=== PATIENT | female | born 1955 | race Hispanic/Latino ===

== ENCOUNTER → 2017-05-29 | Outpatient (CLI) | payer MEDICARE ==
[~2017-05-29] MED LIST: IOPAMIDOL-370 75 ML VIAL IV ONE
== END ==
LOC: RAH 09:00
PROVIDERS: ATTEND Family Medicine
DX: R10.9 Unspecified abdominal pain (principal)
CPT/HCPCS: 74160; Q9967

== ENCOUNTER 2018-04-08 09:50 | Observation (INO) | payer MEDICARE ==
[~2018-04-08] VITALS: Ht 149.9 cm; Wt 73.4 kg
[2018-04-08 10:35] LABS: BASOPHILS % (AUTO) 0.3 % (0.0-5.0); EOSINOPHILS % (AUTO) 1.5 % (0.0-8.0); HEMATOCRIT 40.1 % (36-48); LYMPHOCYTES % (AUTO) 21.4 % (21.0-51.0); MEAN CORPUSCULAR HEMOGLOBIN 30.3 pg (27.0-33.0); MEAN CORPUSCULAR HGB CONC 33.2 g/dL (32.0-36.0); MEAN CORPUSCULAR VOLUME 91.3 fL (79-99); MONOCYTES % (AUTO) 5.1 % (3.0-13.0); NEUTROPHILS % (AUTO) 71.7 % (40.0-77.0); NUCLEATED RED BLOOD CELLS 0.1 % (0.0-0.19); PLATELET COUNT (AUTO) 278 K/uL (130-400); RED BLOOD CELL COUNT(AUTO) 4.39 MIL/uL (4.00-5.50); RED CELL DISTRIBUTION WIDTH 13.7 % (11.0-15.5)
[2018-04-08 10:38] LABS: APPEARANCE,URINE Cloudy (CLEAR); BILIRUBIN,URINE Negative (NEGATIVE); COLOR,URINE Yellow (YELLOW); GLUCOSE, URINE (UA) Negative (NEGATIVE); KETONES,URINE Negative (NEGATIVE); LEUKOCYTE ESTERASE ,URINE Small (NEGATIVE); NITRATE,URINE Negative (NEGATIVE); OCCULT BLOOD,URINE Negative (NEGATIVE); PROTEIN,URINE Negative (NEGATIVE); UROBILINOGEN,URINE 0.2 mg/dL (0.2-1.0)
[2018-04-08 10:43] LABS: CREATININE 0.8 mg/dL (0.5-1.5); POTASSIUM 3.9 mmol/L (3.5-5.1)
[2018-04-08 10:48] LABS: ALBUMIN 3.8 g/dL (3.5-5.0); BILIRUBIN,TOTAL 0.5 mg/dL (0.2-1.0); TOTAL PROTEIN, SERUM 8.5 g/dL (6.0-8.3)
[2018-04-08 10:48] LABS: BACTERIA,URINE Few /HPF (None Seen); RBC,URINE 0-1 /HPF (0-1)
[2018-04-08] MEDS ORDERED: ASPIRIN 325 MG TABLET ONE (12:04)
[2018-04-08] MEDS: SODIUM CHLORIDE 0.9% 1000ML 1,000 ML IV SCH (15:39)
[2018-04-08] MEDS ORDERED: ACETAMINOPHEN 325 MG TAB PO PRN (15:45)
[2018-04-08] MEDS ORDERED: MORPHINE SULFATE 2 MG/ML 1ML SYG IV PRN (15:45)
[2018-04-08] MEDS ORDERED: ONDANSETRON HCL 4 MG/2 ML VIAL IV PRN (15:45)
[2018-04-08] MEDS ORDERED: HYDRALAZINE HCL 20 MG/ML VIAL IV PRN (15:45)
[2018-04-08] MEDS: INSULIN HUMULIN R 100 UNIT/ML 3ML SQ SCH ×2 (16:30→21:00)
[2018-04-08 18:15] VITALS: BP 123/63
[2018-04-08] MEDS ORDERED: ACET-2900 PO (18:26)
[2018-04-08] MEDS ORDERED: METF-444 PO (18:26)
[2018-04-08] MEDS: FAMOTIDINE/PF 20 MG/2 ML VIAL IV SCH (20:40)
--- NOTE | 2018-04-08 20:40 | NUR ---
MEDS PT RESTING WELL IN BED. NO CONCERNS VERBALIZED. DUE MEDS ADMINISTERED, TOLERATED WELL. KEPT RESTED AND COMFORTABLE. CALL LIGHT WITHIN REACH. WILL CONTINUE TO MONITOR.
[2018-04-08] MEDS ORDERED: ATORVASTATIN CALCIUM 20 MG TABLET PO SCH (21:00)
[2018-04-08] MEDS ORDERED: ACETAMINOPHEN EXTENDED RELEASE 650 MG TABLET PO PRN (21:45)
[2018-04-09] VITALS: BP 122/65
[2018-04-09] MEDS: SODIUM CHLORIDE 0.9% 1000ML 1,000 ML IV SCH ×2 (01:10→02:48)
--- NOTE | 2018-04-09 02:00 | NUR ---
ROUNDS PT FAIRLY ASLEEP WITH RESPIRATIONS EVEN AND UNLABORED. NO NOTED DISTRESS. KEPT UNDISTURBED FOR NOW. WILL MONITOR PT.
[2018-04-09 04:00] VITALS: BP 142/55
[2018-04-09 04:37] LABS: MEAN CORPUSCULAR HEMOGLOBIN 31.1 pg (27.0-33.0); MEAN CORPUSCULAR VOLUME 91.4 fL (79-99); PLATELET COUNT (AUTO) 267 K/uL (130-400); RED BLOOD CELL COUNT(AUTO) 3.72 MIL/uL (4.00-5.50); RED CELL DISTRIBUTION WIDTH 13.6 % (11.0-15.5); WHITE BLOOD COUNT (AUTO) 8.1 K/uL (4.8-10.8)
[2018-04-09 04:42] LABS: CREATININE 0.8 mg/dL (0.5-1.5); POTASSIUM 3.7 mmol/L (3.5-5.1)
--- NOTE | 2018-04-09 05:36 | NUR ---
ROUNDS PT RESTING WELL. NO NEUROLOGIC DEFICITS NOTED. KEPT COMFORTABLE. FOR MORE CARE.
[2018-04-09] MEDS: INSULIN HUMULIN R 100 UNIT/ML 3ML SQ SCH ×2 (06:17→11:30)
[2018-04-09 08:00] VITALS: BP 132/67
[2018-04-09] MEDS ORDERED: ASPI-555 PO (08:19)
[2018-04-09] MEDS ORDERED: ATOR10 PO (08:19)
[2018-04-09] MEDS ORDERED: ENOXAPARIN SODIUM 40 MG/0.4 ML SYRINGE SQ SCH (09:00)
[2018-04-09] MEDS ORDERED: ASPIRIN 81 MG EC TAB PO SCH (09:00)
[2018-04-09] MEDS ORDERED: ASPIRIN 81MG TAB.CHEW PO SCH (09:00)
[2018-04-09] MEDS: FAMOTIDINE/PF 20 MG/2 ML VIAL IV SCH (09:09)
--- NOTE | 2018-04-09 09:30 | NUR ---
DYSPHAGIA EVAL COMPLETE. -S/S OF ASPIRATION. RECOMMEND REGULAR, THIN LIQUID DIET; PILLS WHOLE WITH LIQUIDS. PATIENT INFORMATION: Pt IS A 62 Y.O. FEMALE REFERRED FOR A BEDSIDE DYSPHAGIA EVALUATION SECONDARY TO POSSIBLE CVA. Pt AAOX3 AND COOPERATIVE. Pt REPORTS MARIBEL SHE CAME IN WITH DIFFICULTY SWALLOWING BUT SYMPTOMS HAS SUBSIDED. Pt CURRENTLY ADMITTED SECONDARY TO RULE OUT CVA. Pt HAS A PAST MEDICAL HISTORY SIGNIFICANT FOR DIABETES MELLITUS, HYSTERECTOMY, AND CHOLECYSTECTOMY. EVALUATION: SWALLOW FUNCTION AND EFFICIENCY WITHIN FUNCTIONAL LIMITS. ORAL MOTOR STRENGTH, COORDINATION, AND ROM WITHIN FUNCTIONAL LIMITS. LARYNGEAL ELEVATION/EXCURSION STRONG WITH TIMELY PHARYNGEAL RESPONSE. NO OVERT SIGNS OR SYMPTOMS OF ASPIRATION PRESENT AT BEDSIDE. VOCAL QUALITY CLEAR WITH NO THROAT CLEAR OR COUGH RESPONSE PRESENT. RECOMMENDATIONS: 1. REGULAR TEXTURE, THIN LIQUID DIET; PILLS WHOLE WITH LIQUIDS. 2. COMPENSATORY STRATEGIES (PROPHYLAXIS): *SEATED AT 90 DEGREE ANGLE G-CODES SWALLOWING: [id number] Addendum: 04/09/18 at 1242 by LIZA COTTON Amended: Links added.
--- NOTE | 2018-04-09 09:45 | NUR ---
COGNITIVE EVAL COMPLETE. COGNITIVE-LINGUISTIC ABILITIES WITHIN FUNCTIONAL LIMITS. PATIENT INFORMATION: Pt IS A 62 Y.O. FEMALE REFERRED FOR A BEDSIDE DYSPHAGIA EVALUATION SECONDARY TO POSSIBLE CVA. Pt AAOX3 AND COOPERATIVE. Pt HAS A PAST MEDICAL HISTORY SIGNIFICANT FOR DIABETES MELLITUS, HYSTERECTOMY, AND CHOLECYSTECTOMY. EVALUATION: Pt AAOX3. Pt REQUESTS WANTS AND NEEDS INDEPENDENTLY. Pt INTELLIGIBLE AT 100% ACCURACY TO THE UNFAMILIAR LISTENER. Pt COMMUNICATING AT CONVERSATIONAL LEVEL WITH NO DEFICITS IDENTIFIED AT THIS TIME. Pt COMPLETED COGNITIVE-LINGUISTIC EVALUATION TARGETING: ORIENTATION, ATTENTION/CONCENTRATION, MEMORY (IMMEDIATE, SHORT-TERM AND LONG-TERM), PROBLEM SOLVING, LOGIC/REASONING/INFERENCE, THOUGHT ORGANIZATION, FUNCTIONAL MATH AND TELLING TIME. Pt ABLE TO COMPLETE TASKS WITH CORRECT AND TIMELY ANSWERS TO ALL SECTIONS. G-CODES SPOKEN LANGUAGE EXPRESSION: [id number] Addendum: 04/09/18 at 1246 by LIZA COTTON Amended: Links added.
[2018-04-09 12:00] VITALS: BP 135/63
--- NOTE | 2018-04-09 12:06 | NUR ---
DCP CM met with pt discussed dc plans. Pt is independent prior to admission, lives at home with spouse, daughter lives close by. Denies any equipments/services. Pt feels safe to go back home, still drives, spouse able to assist with transportation and needs as necessary. DC plan to home once stable. CM to cont to follow up. Addendum: 04/09/18 at 1207 by DELL ORTIZ LVN CM Amended: Links added.
--- NOTE | 2018-04-09 17:00 | NUR ---
DISCHARGE PATIENT GIVEN DISCHARGE INSTRUCTIONS VIA TEACH BACK. 20G PIV TO RFA DISCONTINUED, TIP INTACT. RX GIVEN FOR LIPITOR AND ASA. PATIENT TO FOLLOW UP WITH PCP IN 3 TO 5 DAYS. PATIENT INSTRUCTED TO RETURN TO ER IF SYMPTOMS REOCCUR OR WORSEN. PATIENT STABLE AT THIS TIME.
== END 2018-04-09 17:00 | disposition home or self-care (01) ==
LOC: EDH 09:50 → EDHIP 13:08 → 3AH 17:52
PROVIDERS: ADMIT Hospitalist; ATTEND Hospitalist
DX: G45.9 Transient cerebral ischemic attack, unspecified (principal); R13.10 Dysphagia, unspecified; E11.9 Type 2 diabetes mellitus without complications; I10 Essential (primary) hypertension; Z82.3 Family history of stroke; Z82.49 Family history of ischemic heart disease and other diseases of the circulatory system; Z83.3 Family history of diabetes mellitus; Z90.710 Acquired absence of both cervix and uterus
CPT/HCPCS: 36415 ×2; 70450; 70551; 80048; 80053; 81001; 82948 ×4; 84484; 85025; 85027; 92522; 92610; 93005; 93306; 93880; 96361; 96372; 96374; 96376; 97116; 97161; 99284; G0378 ×28; G8978; G8979; G8980; G8981; G8982; G8983; J1650; J3490 ×2; J7030

== ENCOUNTER 2020-03-04 13:58 | Inpatient (IN) | payer MEDICARE ==
[~2020-03-04] VITALS: Ht 149.9 cm; Wt 71.9 kg
[~2020-03-04 13:58] MED LIST changes: +ACET-3194 PO; +ASPI-556 PO; +ATOR10 PO; -IOPAMIDOL-370 75 ML VIAL IV ONE; +METF-444 PO
[2020-03-04 15:02] LABS: INR 0.99 (0.85-1.15); PROTHROMBIN TIME 10.6 SEC (9.6-11.6)
[2020-03-04 15:03] LABS: PARTIAL THROMBOPLASTIN TIME 29.2 SEC (26.3-35.5)
[2020-03-04 15:05] LABS: CARBON DIOXIDE 30 mmol/L (21-32); CHLORIDE 96 mmol/L (101-111); CREATININE 0.8 mg/dL (0.5-1.5); GLOMERULAR FILTR. RATE CALC 77 mL/min (>60); GLUCOSE,RANDOM 135 mg/dL (70-105); SODIUM SERUM 136 mmol/L (136-145); UREA NITROGEN, BLOOD 12 mg/dL (7-18)
[2020-03-04] MEDS ORDERED: ALBUTEROL INHALER 90MCG/INH IH ONE (15:08)
[2020-03-04] MEDS ORDERED: METHYLPREDNISOLONE SOD SUCC 40MG/ML 1ML ONE (15:09)
[2020-03-04] MEDS ORDERED: AZITHROMYCIN 500MG+NS 250ML 250 ML IV ONE (15:09)
[2020-03-04] MEDS ORDERED: ENOXAPARIN SODIUM 60 MG/0.6 ML SQ ONE (15:09)
[2020-03-04] MEDS ORDERED: FAMOTIDINE/PF 20 MG/2 ML VIAL IV ONE (15:10)
[2020-03-04 15:16] LABS: ALANINE AMINOTRANSFERASE 37 U/L (12-78); ASPARTATE AMINOTRANSFERASE 39 U/L (10-37); BILIRUBIN,TOTAL 0.3 mg/dL (0.2-1.0); CREATINE KINASE, TOTAL 26 U/L (21-232); LACTATE DEHYDROGENASE 287 U/L (81-234); MYOGLOBIN 26 ng/mL (10-92); TOTAL PROTEIN, SERUM 8.3 g/dL (6.0-8.3); TROPONIN I < 0.04 ng/mL (0.00-0.06)
[2020-03-04 15:48] LABS: BASOPHILS % (AUTO) 0.2 % (0.0-5.0); EOSINOPHILS % (AUTO) 0.3 % (0.0-8.0); LYMPHOCYTES % (AUTO) 12.9 % (21.0-51.0); MEAN CORPUSCULAR HEMOGLOBIN 30.7 pg (27.0-33.0); MEAN CORPUSCULAR HGB CONC 33.6 g/dL (32.0-36.0); MEAN CORPUSCULAR VOLUME 91.2 fL (79-99); MONOCYTES % (AUTO) 10.3 % (3.0-13.0); NEUTROPHILS % (AUTO) 75.2 % (40.0-77.0); PLATELET COUNT (AUTO) 376 K/uL (130-400); RED BLOOD CELL COUNT(AUTO) 3.62 MIL/uL (4.00-5.50); RED CELL DISTRIBUTION WIDTH 13.6 % (11.0-15.5); WHITE BLOOD COUNT (AUTO) 10.9 K/uL (4.8-10.8)
[2020-03-04] MEDS ORDERED: PHARMACY COMMUNICATION MISC SCH (16:30)
[2020-03-04 16:55] LABS: ERYTHROCYTE SEDIMENTATION RATE 133 MM/HR (0-30)
[2020-03-04 18:19] LABS: HEMOGLOBIN A1C 7.4 % (4.0-6.0)
[2020-03-04] MEDS ORDERED: OMEP40CA13 PO (20:16)
[2020-03-04 23:32] LABS: APPEARANCE,URINE Clear (CLEAR); BILIRUBIN,URINE Negative (NEGATIVE); COLOR,URINE Yellow (YELLOW); GLUCOSE, URINE (UA) 500 mg/dL (NEGATIVE); KETONES,URINE 40 mg/dL (NEGATIVE); LEUKOCYTE ESTERASE ,URINE Negative (NEGATIVE); NITRATE,URINE Negative (NEGATIVE); OCCULT BLOOD,URINE Negative (NEGATIVE); PROTEIN,URINE Trace mg/dL (NEGATIVE); UROBILINOGEN,URINE 0.2 mg/dL (0.2-1.0)
[2020-03-04 23:45] LABS: BACTERIA,URINE None Seen /HPF (None Seen); MUCUS,URINE Rare LPF (None Seen); RBC,URINE None Seen /HPF (0-1); SQUAMOUS EPITHELIAL CELL,UR Few /HPF (0-2); WBC,URINE None Seen /HPF (0-1); YEAST,URINE BUDDING None Seen /HPF (None Seen)
[2020-03-05 04:20] LABS: BASOPHILS % (AUTO) 0.1 % (0.0-5.0); HEMATOCRIT 30.3 % (36-48); LYMPHOCYTES % (AUTO) 15.7 % (21.0-51.0); MEAN CORPUSCULAR HGB CONC 33.3 g/dL (32.0-36.0); MEAN CORPUSCULAR VOLUME 89.9 fL (79-99); MONOCYTES % (AUTO) 10.3 % (3.0-13.0); NEUTROPHILS % (AUTO) 72.4 % (40.0-77.0); PLATELET COUNT (AUTO) 382 K/uL (130-400); RED BLOOD CELL COUNT(AUTO) 3.37 MIL/uL (4.00-5.50); RED CELL DISTRIBUTION WIDTH 13.4 % (11.0-15.5); WHITE BLOOD COUNT (AUTO) 8.1 K/uL (4.8-10.8)
[2020-03-05 04:54] LABS: ALBUMIN 2.5 g/dL (3.5-5.0); BILIRUBIN,TOTAL 0.2 mg/dL (0.2-1.0); CREATININE 0.7 mg/dL (0.5-1.5); POTASSIUM 4.3 mmol/L (3.5-5.1); TOTAL PROTEIN, SERUM 7.4 g/dL (6.0-8.3)
[2020-03-05 06:14] LABS: CRP QUANTITATIVE 208.7 mg/L (0.00-9.0)
[2020-03-05 06:24] LABS: ERYTHROCYTE SEDIMENTATION RATE 131 MM/HR (0-30)
[2020-03-05] MEDS: INSULIN HUMULIN R 100 UNIT/ML 3ML SQ SCH ×4 (07:30→21:00)
[2020-03-05] MEDS ORDERED: DEXAMETHASONE SOD PHOSPHATE 10MG/ML 1ML VIAL ONE (07:40)
[2020-03-05] MEDS ORDERED: INSULIN HUMULIN R 100 UNIT/ML 3ML ONE ×4 (07:41→21:01)
[2020-03-05] MEDS ORDERED: ENOXAPARIN SODIUM 40 MG/0.4 ML SYRINGE SQ ONE (07:41)
[2020-03-05] MEDS ORDERED: PHARMACY COMMUNICATION MISC SCH (11:00)
[2020-03-05] MEDS ORDERED: ERGOCALCIFEROL (VITAMIN D2) 50,000 UNIT CAPSULE PO SCH (11:15)
[2020-03-05] MEDS ORDERED: ERGOCALCIFEROL (VITAMIN D2) 50,000 UNIT CAPSULE ONE (11:17)
[2020-03-05] MEDS: ENOXAPARIN SODIUM 0.5 MG/KG EACH SQ SCH (21:00)
[2020-03-06 04:35] LABS: BASOPHILS % (AUTO) 0.2 % (0.0-5.0); HEMATOCRIT 30.9 % (36-48); LYMPHOCYTES % (AUTO) 16.1 % (21.0-51.0); MEAN CORPUSCULAR HEMOGLOBIN 30.3 pg (27.0-33.0); MEAN CORPUSCULAR HGB CONC 33.3 g/dL (32.0-36.0); MEAN CORPUSCULAR VOLUME 90.9 fL (79-99); NEUTROPHILS % (AUTO) 72.5 % (40.0-77.0); PLATELET COUNT (AUTO) 416 K/uL (130-400); RED CELL DISTRIBUTION WIDTH 13.3 % (11.0-15.5); WHITE BLOOD COUNT (AUTO) 10.7 K/uL (4.8-10.8)
[2020-03-06 04:51] LABS: ALANINE AMINOTRANSFERASE 28 U/L (12-78); ALBUMIN 2.4 g/dL (3.5-5.0); ASPARTATE AMINOTRANSFERASE 42 U/L (10-37); BILIRUBIN,TOTAL 0.1 mg/dL (0.2-1.0); CARBON DIOXIDE 27 mmol/L (21-32); CHLORIDE 108 mmol/L (101-111); CREATININE 0.6 mg/dL (0.5-1.5); GLOMERULAR FILTR. RATE CALC 107 mL/min (>60); GLUCOSE,RANDOM 74 mg/dL (70-105); POTASSIUM 4.1 mmol/L (3.5-5.1); SODIUM SERUM 143 mmol/L (136-145); UREA NITROGEN, BLOOD 14 mg/dL (7-18)
[2020-03-06] MEDS: INSULIN HUMULIN R 100 UNIT/ML 3ML SQ SCH ×4 (07:30→21:00)
[2020-03-06] MEDS: ENOXAPARIN SODIUM 40 MG/0.4 ML SYRINGE SQ SCH (09:00)
[2020-03-06] MEDS: ENOXAPARIN SODIUM 0.5 MG/KG EACH SQ SCH ×2 (09:00→21:00)
[2020-03-06] MEDS: DEXAMETHASONE SOD PHOSPHATE 4 MG/ML 1ML VIAL IVP SCH (09:00)
[2020-03-06] MEDS ORDERED: DEXAMETHASONE SOD PHOSPHATE 10MG/ML 1ML VIAL ONE (09:12)
[2020-03-06] MEDS ORDERED: ASCORBIC ACID 500 MG TAB ONE (09:12)
[2020-03-06] MEDS ORDERED: ACETYLCYSTEINE 600 MG CAPSULE ONE (09:12)
[2020-03-06] MEDS ORDERED: ENOXAPARIN SODIUM 40 MG/0.4 ML SYRINGE SQ ONE (09:13)
[2020-03-06] MEDS ORDERED: ZINC SULFATE 220 CAPSULE ONE (09:13)
[2020-03-06] MEDS ORDERED: DOXYCYCLINE 100MG+NS 250ML 250 ML IV ONE (10:04)
[2020-03-06] MEDS ORDERED: INSULIN HUMULIN R 100 UNIT/ML 3ML ONE (17:20)
[2020-03-06] MEDS ORDERED: ACETAMINOPHEN EXTRA STRENGTH 500 MG TABLET ONE (17:49)
[2020-03-07 05:15] VITALS: BP 145/74
[2020-03-07 06:30] LABS: BASOPHILS % (AUTO) 0.3 % (0.0-5.0); LYMPHOCYTES % (AUTO) 21.9 % (21.0-51.0); MEAN CORPUSCULAR HGB CONC 32.7 g/dL (32.0-36.0); MEAN CORPUSCULAR VOLUME 91.7 fL (79-99); MONOCYTES % (AUTO) 9.5 % (3.0-13.0); NEUTROPHILS % (AUTO) 65.6 % (40.0-77.0); PLATELET COUNT (AUTO) 494 K/uL (130-400); RED CELL DISTRIBUTION WIDTH 13.2 % (11.0-15.5); WHITE BLOOD COUNT (AUTO) 10.8 K/uL (4.8-10.8)
[2020-03-07 07:10] LABS: ALBUMIN 2.6 g/dL (3.5-5.0); BILIRUBIN,TOTAL 0.3 mg/dL (0.2-1.0); CREATININE 0.7 mg/dL (0.5-1.5); POTASSIUM 3.8 mmol/L (3.5-5.1); TOTAL PROTEIN, SERUM 7.7 g/dL (6.0-8.3)
[2020-03-07] MEDS: INSULIN HUMULIN R 100 UNIT/ML 3ML SQ SCH ×4 (07:30→22:51)
[2020-03-07 08:17] VITALS: BP 140/73
[2020-03-07] MEDS: ENOXAPARIN SODIUM 40 MG/0.4 ML SYRINGE SQ SCH ×3 (09:00→22:49)
[2020-03-07] MEDS: DEXAMETHASONE SOD PHOSPHATE 4 MG/ML 1ML VIAL IVP SCH ×2 (09:00→10:21)
[2020-03-07] MEDS: ASCORBIC ACID 500 MG TAB PO SCH ×2 (09:00→10:21)
[2020-03-07] MEDS: ZINC SULFATE 220 CAPSULE PO SCH ×2 (09:00→10:21)
[2020-03-07 09:56] LABS: LACTATE DEHYDROGENASE 255 U/L (81-234)
[2020-03-07] MEDS ORDERED: MAG HYDROX/AL HYDROX/SIMETH ES 30 ML SUSP UDCUP PO PRN (11:30)
[2020-03-07] MEDS: PANTOPRAZOLE SODIUM 40 MG TABLET.DR PO SCH (11:50)
[2020-03-07 12:09] VITALS: BP 127/64
[2020-03-07] MEDS ORDERED: PHARMACY COMMUNICATION MISC SCH ×2 (12:15→12:45)
[2020-03-07] MEDS ORDERED: COMPOUND IV REFRIGERATED 1 EACH IVSOLN MISC PRN (14:00)
[2020-03-07] MEDS ORDERED: REMDESIVIR (EUA) 520 200 MG in SODIUM CHLORIDE 0.9% 250 ML IV ONE (14:00)
[2020-03-07 16:04] VITALS: BP 110/67
[2020-03-07] MEDS: GUAIFENESIN-DM 200/20 MG 10 ML PO PRN (18:52)
[2020-03-07 19:58] VITALS: BP 120/59
[2020-03-07] MEDS ORDERED: CARVEDILOL 25 MG TABLET PO ONE ×2 (21:35→22:36)
[2020-03-07] MEDS ORDERED: FAMOTIDINE/PF 20 MG/2 ML VIAL IV ONE ×2 (21:37→22:37)
[2020-03-07 23:59] VITALS: BP 137/77
[2020-03-08] MEDS: GUAIFENESIN-DM 200/20 MG 10 ML PO PRN ×4 (01:08→20:08)
[2020-03-08 03:23] VITALS: BP 142/70
[2020-03-08 05:47] LABS: BASOPHILS % (AUTO) 0.3 % (0.0-5.0); EOSINOPHILS % (AUTO) 0.1 % (0.0-8.0); HEMATOCRIT 31.4 % (36-48); LYMPHOCYTES % (AUTO) 21.8 % (21.0-51.0); MEAN CORPUSCULAR HEMOGLOBIN 29.8 pg (27.0-33.0); MEAN CORPUSCULAR HGB CONC 32.8 g/dL (32.0-36.0); MEAN CORPUSCULAR VOLUME 90.8 fL (79-99); MONOCYTES % (AUTO) 9.9 % (3.0-13.0); NEUTROPHILS % (AUTO) 63.9 % (40.0-77.0); PLATELET COUNT (AUTO) 507 K/uL (130-400); RED BLOOD CELL COUNT(AUTO) 3.46 MIL/uL (4.00-5.50); RED CELL DISTRIBUTION WIDTH 13.2 % (11.0-15.5); WHITE BLOOD COUNT (AUTO) 9.5 K/uL (4.8-10.8)
[2020-03-08] MEDS: PHARMACY COMMUNICATION MISC SCH (06:00)
[2020-03-08 06:11] LABS: ALBUMIN 2.5 g/dL (3.5-5.0); BILIRUBIN,TOTAL 0.2 mg/dL (0.2-1.0); CREATININE 0.7 mg/dL (0.5-1.5); CRP QUANTITATIVE 61.9 mg/L (0.00-9.0); POTASSIUM 3.9 mmol/L (3.5-5.1); TOTAL PROTEIN, SERUM 7.4 g/dL (6.0-8.3)
[2020-03-08] MEDS: INSULIN HUMULIN R 100 UNIT/ML 3ML SQ SCH ×4 (07:30→20:09)
[2020-03-08 08:00] VITALS: BP 126/56
[2020-03-08] MEDS: ASCORBIC ACID 500 MG TAB PO SCH (09:45)
[2020-03-08] MEDS: ENOXAPARIN SODIUM 40 MG/0.4 ML SYRINGE SQ SCH ×2 (09:45→20:08)
[2020-03-08] MEDS: DEXAMETHASONE SOD PHOSPHATE 4 MG/ML 1ML VIAL IVP SCH (09:45)
[2020-03-08] MEDS: PANTOPRAZOLE SODIUM 40 MG TABLET.DR PO SCH (09:45)
[2020-03-08] MEDS: ZINC SULFATE 220 CAPSULE PO SCH (09:46)
[2020-03-08 12:00] VITALS: BP 110/64
[2020-03-08] MEDS: REMDESIVIR (EUA) 520 100 MG in SODIUM CHLORIDE 0.9% 250 ML IV SCH (13:05)
[2020-03-08 16:00] VITALS: BP 116/79
[2020-03-08 20:00] VITALS: BP 101/58
[2020-03-09] VITALS (7 sets, daily range): BP systolic 107–125; BP diastolic 56–76
[2020-03-09 04:36] LABS: BASOPHILS % (AUTO) 0.2 % (0.0-5.0); EOSINOPHILS % (AUTO) 0.2 % (0.0-8.0); HEMATOCRIT 29.9 % (36-48); LYMPHOCYTES % (AUTO) 20.4 % (21.0-51.0); MEAN CORPUSCULAR HGB CONC 33.1 g/dL (32.0-36.0); MEAN CORPUSCULAR VOLUME 90.6 fL (79-99); MONOCYTES % (AUTO) 9.6 % (3.0-13.0); NEUTROPHILS % (AUTO) 65.9 % (40.0-77.0); PLATELET COUNT (AUTO) 493 K/uL (130-400); RED CELL DISTRIBUTION WIDTH 13.2 % (11.0-15.5); WHITE BLOOD COUNT (AUTO) 10.6 K/uL (4.8-10.8)
[2020-03-09 05:18] LABS: ALANINE AMINOTRANSFERASE 37 U/L (12-78); ALBUMIN 2.6 g/dL (3.5-5.0); ASPARTATE AMINOTRANSFERASE 23 U/L (10-37); BILIRUBIN,DIRECT 0.1 mg/dL (0.0-0.3); BILIRUBIN,TOTAL 0.2 mg/dL (0.2-1.0); CARBON DIOXIDE 30 mmol/L (21-32); CHLORIDE 104 mmol/L (101-111); CREATININE 0.8 mg/dL (0.5-1.5); GLOMERULAR FILTR. RATE CALC 77 mL/min (>60); GLUCOSE,RANDOM 108 mg/dL (70-105); POTASSIUM 4.2 mmol/L (3.5-5.1); SODIUM SERUM 141 mmol/L (136-145); TOTAL PROTEIN, SERUM 6.4 g/dL (6.0-8.3); UREA NITROGEN, BLOOD 20 mg/dL (7-18)
[2020-03-09] MEDS: INSULIN HUMULIN R 100 UNIT/ML 3ML SQ SCH ×4 (05:20→23:06)
[2020-03-09] MEDS: PHARMACY COMMUNICATION MISC SCH (06:00)
[2020-03-09] MEDS: GUAIFENESIN-DM 200/20 MG 10 ML PO PRN ×2 (09:10→18:15)
[2020-03-09] MEDS: PANTOPRAZOLE SODIUM 40 MG TABLET.DR PO SCH (09:10)
[2020-03-09] MEDS: ENOXAPARIN SODIUM 40 MG/0.4 ML SYRINGE SQ SCH ×2 (09:10→23:03)
[2020-03-09] MEDS: ZINC SULFATE 220 CAPSULE PO SCH (09:10)
[2020-03-09] MEDS: ASCORBIC ACID 500 MG TAB PO SCH (09:10)
[2020-03-09] MEDS: DEXAMETHASONE SOD PHOSPHATE 4 MG/ML 1ML VIAL IVP SCH (09:10)
[2020-03-09] MEDS: REMDESIVIR (EUA) 520 100 MG in SODIUM CHLORIDE 0.9% 250 ML IV SCH (13:10)
[2020-03-09] MEDS: ACETAMINOPHEN 325 MG TAB PO PRN (14:53)
[2020-03-10 03:47] VITALS: BP 143/79
[2020-03-10 05:51] LABS: BASOPHILS % (AUTO) 0.2 % (0.0-5.0); EOSINOPHILS % (AUTO) 0.5 % (0.0-8.0); HEMATOCRIT 29.5 % (36-48); LYMPHOCYTES % (AUTO) 22.5 % (21.0-51.0); MEAN CORPUSCULAR HEMOGLOBIN 29.4 pg (27.0-33.0); MEAN CORPUSCULAR HGB CONC 32.5 g/dL (32.0-36.0); MEAN CORPUSCULAR VOLUME 90.5 fL (79-99); MONOCYTES % (AUTO) 10.7 % (3.0-13.0); NEUTROPHILS % (AUTO) 61.7 % (40.0-77.0); PLATELET COUNT (AUTO) 522 K/uL (130-400); RED BLOOD CELL COUNT(AUTO) 3.26 MIL/uL (4.00-5.50); RED CELL DISTRIBUTION WIDTH 13.2 % (11.0-15.5); WHITE BLOOD COUNT (AUTO) 11.7 K/uL (4.8-10.8)
[2020-03-10] MEDS: PHARMACY COMMUNICATION MISC SCH (06:00)
[2020-03-10 06:20] LABS: CREATININE 0.7 mg/dL (0.5-1.5); CRP QUANTITATIVE 27.5 mg/L (0.00-9.0); POTASSIUM 3.4 mmol/L (3.5-5.1)
[2020-03-10] MEDS: INSULIN HUMULIN R 100 UNIT/ML 3ML SQ SCH ×4 (07:30→21:04)
[2020-03-10 08:00] VITALS: BP 121/56
[2020-03-10] MEDS ORDERED: POTASSIUM CHLORIDE 20 MEQ ERTAB PO SCH (08:45)
[2020-03-10] MEDS: PANTOPRAZOLE SODIUM 40 MG TABLET.DR PO SCH (09:10)
[2020-03-10] MEDS: ZINC SULFATE 220 CAPSULE PO SCH (09:10)
[2020-03-10] MEDS: DEXAMETHASONE SOD PHOSPHATE 4 MG/ML 1ML VIAL IVP SCH (09:10)
[2020-03-10] MEDS: ASCORBIC ACID 500 MG TAB PO SCH (09:12)
[2020-03-10] MEDS: ENOXAPARIN SODIUM 40 MG/0.4 ML SYRINGE SQ SCH ×2 (09:12→20:49)
[2020-03-10 12:00] VITALS: BP 105/63
[2020-03-10] MEDS: REMDESIVIR (EUA) 520 100 MG in SODIUM CHLORIDE 0.9% 250 ML IV SCH (13:20)
[2020-03-10 16:00] VITALS: BP 122/62
[2020-03-10 17:56] LABS: HEMATOCRIT 33.2 % (36-48)
[2020-03-10] MEDS ORDERED: LACTULOSE 20 GM/30 ML UDCUP PO SCH (19:00)
[2020-03-10] MEDS ORDERED: POLYETHYLENE GLYCOL 3350 17 GM POWD.PACK PO SCH (19:00)
[2020-03-10 21:38] VITALS: BP 107/56
[2020-03-11 00:06] VITALS: BP 115/58
[2020-03-11 03:45] VITALS: BP 110/62
[2020-03-11 05:25] LABS: BASOPHILS % (AUTO) 0.2 % (0.0-5.0); EOSINOPHILS % (AUTO) 0.4 % (0.0-8.0); HEMATOCRIT 30.1 % (36-48); MEAN CORPUSCULAR HGB CONC 32.2 g/dL (32.0-36.0); MEAN CORPUSCULAR VOLUME 93.2 fL (79-99); MONOCYTES % (AUTO) 11.2 % (3.0-13.0); NEUTROPHILS % (AUTO) 61.2 % (40.0-77.0); PLATELET COUNT (AUTO) 509 K/uL (130-400); RED BLOOD CELL COUNT(AUTO) 3.23 MIL/uL (4.00-5.50); RED CELL DISTRIBUTION WIDTH 13.4 % (11.0-15.5); WHITE BLOOD COUNT (AUTO) 10.8 K/uL (4.8-10.8)
[2020-03-11 05:38] LABS: CREATININE 0.8 mg/dL (0.5-1.5); CRP QUANTITATIVE 28.2 mg/L (0.00-9.0)
[2020-03-11] MEDS: INSULIN HUMULIN R 100 UNIT/ML 3ML SQ SCH ×4 (06:22→21:10)
[2020-03-11] MEDS: PANTOPRAZOLE SODIUM 40 MG TABLET.DR PO SCH (06:35)
[2020-03-11] MEDS: ZINC SULFATE 220 CAPSULE PO SCH (08:30)
[2020-03-11] MEDS: ASCORBIC ACID 500 MG TAB PO SCH (08:30)
[2020-03-11] MEDS: DEXAMETHASONE SOD PHOSPHATE 4 MG/ML 1ML VIAL IVP SCH (08:30)
[2020-03-11] MEDS: ENOXAPARIN SODIUM 40 MG/0.4 ML SYRINGE SQ SCH ×2 (08:30→21:08)
[2020-03-11 08:34] VITALS: BP 121/63
[2020-03-11 08:39] LABS: ALBUMIN 2.4 g/dL (3.5-5.0); BILIRUBIN,DIRECT 0.1 mg/dL (0.0-0.3); BILIRUBIN,TOTAL 0.2 mg/dL (0.2-1.0); TOTAL PROTEIN, SERUM 6.4 g/dL (6.0-8.3)
[2020-03-11 11:51] VITALS: BP 138/82
[2020-03-11] MEDS: REMDESIVIR (EUA) 520 100 MG in SODIUM CHLORIDE 0.9% 250 ML IV SCH (14:49)
[2020-03-11] MEDS: ACETAMINOPHEN 325 MG TAB PO PRN (14:55)
[2020-03-11 16:16] VITALS: BP 104/52
[2020-03-11 19:30] VITALS: BP 125/68
[2020-03-12] VITALS: BP 122/59
[2020-03-12 03:00] VITALS: BP 117/61
[2020-03-12 05:32] LABS: BASOPHILS % (AUTO) 0.4 % (0.0-5.0); EOSINOPHILS % (AUTO) 0.4 % (0.0-8.0); HEMATOCRIT 30.4 % (36-48); MEAN CORPUSCULAR HEMOGLOBIN 29.8 pg (27.0-33.0); MEAN CORPUSCULAR HGB CONC 32.6 g/dL (32.0-36.0); MEAN CORPUSCULAR VOLUME 91.6 fL (79-99); MONOCYTES % (AUTO) 10.5 % (3.0-13.0); NEUTROPHILS % (AUTO) 58.5 % (40.0-77.0); PLATELET COUNT (AUTO) 527 K/uL (130-400); RED BLOOD CELL COUNT(AUTO) 3.32 MIL/uL (4.00-5.50); RED CELL DISTRIBUTION WIDTH 13.4 % (11.0-15.5); WHITE BLOOD COUNT (AUTO) 10.7 K/uL (4.8-10.8)
[2020-03-12] MEDS: INSULIN HUMULIN R 100 UNIT/ML 3ML SQ SCH ×2 (05:45→12:17)
[2020-03-12 06:02] LABS: CREATININE 0.6 mg/dL (0.5-1.5); CRP QUANTITATIVE 22.5 mg/L (0.00-9.0); POTASSIUM 3.7 mmol/L (3.5-5.1)
[2020-03-12] MEDS: PANTOPRAZOLE SODIUM 40 MG TABLET.DR PO SCH (06:36)
[2020-03-12 08:00] VITALS: BP 115/55
[2020-03-12] MEDS: ENOXAPARIN SODIUM 40 MG/0.4 ML SYRINGE SQ SCH (08:23)
[2020-03-12] MEDS: DEXAMETHASONE SOD PHOSPHATE 4 MG/ML 1ML VIAL IVP SCH (08:23)
[2020-03-12] MEDS: ZINC SULFATE 220 CAPSULE PO SCH (08:24)
[2020-03-12] MEDS: ASCORBIC ACID 500 MG TAB PO SCH (08:24)
[2020-03-12] MEDS ORDERED: PANT40TA55 PO (11:41)
[2020-03-12] MEDS ORDERED: METF-444 PO (11:41)
[2020-03-12] MEDS ORDERED: DEXA6TAB PO (11:41)
[2020-03-12] MEDS ORDERED: APIX2.5T PO (11:41)
[2020-03-12] MEDS ORDERED: ALBU8.5H8 IH (11:41)
[2020-03-12 12:00] VITALS: BP 136/90
== END 2020-03-12 13:55 | disposition home or self-care (01) | DRG 177 ==
LOC: EDH 13:58 → EDHIP 16:23 → 2AH 03-07 03:10 → 2DH 03-09 22:00 → 2AH 03-11 04:31
PROVIDERS: ADMIT Internal Medicine; ATTEND Internal Medicine
PROC: XW13325 Transfusion of Convalescent Plasma (Nonautologous) into Peripheral Vein, Percutaneous Approach, New Technology Group 5 (ICD-10-PCS; 2020-03-05)
PROC: XW033E5 Introduction of Remdesivir Anti-infective into Peripheral Vein, Percutaneous Approach, New Technology Group 5 (ICD-10-PCS; principal; 2020-03-07)
DX: U07.1 COVID-19 (principal); J12.82 Pneumonia due to coronavirus disease 2019; J96.01 Acute respiratory failure with hypoxia; D68.59 Other primary thrombophilia; E11.9 Type 2 diabetes mellitus without complications; E66.9 Obesity, unspecified; D64.9 Anemia, unspecified; Z88.0 Allergy status to penicillin; Z79.84 Long term (current) use of oral hypoglycemic drugs; Z82.3 Family history of stroke; Z82.49 Family history of ischemic heart disease and other diseases of the circulatory system; Z83.3 Family history of diabetes mellitus; Z90.49 Acquired absence of other specified parts of digestive tract; Z68.32 Body mass index [BMI] 32.0-32.9, adult
CPT/HCPCS: 36415; 71045; 80048; 80053; 80076; 81001; 82550; 82728; 82948; 83036; 83605; 83615; 83735; 83874; 84145; 84443; 84484; 85014; 85018; 85025; 85378; 85610; 85651; 85730; 86140; 86900; 86901; 86927; 87040; 87088; 87426; 93005; 94760; 97039; G0378; J0456; J1100; J1650; J1815; J2920; J3490; J7050; U0003

== ENCOUNTER 2023-12-25 21:02 | Emergency (ER) | payer MEDICARE, OTHER ==
[~2023-12-25] VITALS: Ht 149.9 cm; Wt 68.5 kg
[~2023-12-25 21:02] MED LIST changes: +ALBU8.5H8 IH; +APIX2.5T PO; -ASPI-556 PO; -ATOR10 PO; +DEXA6TAB PO; +PANT40TA55 PO
[2023-12-25] MEDS: ibuPROFEN 800 MG TAB PO ONE (21:19)
[2023-12-25] MEDS: PHENAZOpyridine HCL 200 MG TAB 200 MG TABLET PO ONE (21:19)
[2023-12-25 21:36] LABS: APPEARANCE,URINE CLEAR (CLEAR); BILIRUBIN,URINE NEGATIVE (NEGATIVE); COLOR,URINE YELLOW (YELLOW); GLUCOSE, URINE (UA) NEGATIVE (NEGATIVE); KETONES,URINE NEGATIVE (NEGATIVE); LEUKOCYTE ESTERASE ,URINE 500 Leu/uL (NEGATIVE); NITRATE,URINE NEGATIVE (NEGATIVE); OCCULT BLOOD,URINE MODERATE (NEGATIVE); PROTEIN,URINE NEGATIVE (NEGATIVE); UROBILINOGEN,URINE 0.2 mg/dL (0.2-1.0)
[2023-12-25 21:39] LABS: ADD UA MICROSCOPIC YES
[2023-12-25 21:43] LABS: BACTERIA,URINE FEW /HPF (None Seen); MUCUS,URINE RARE LPF (None Seen); SQUAMOUS EPITHELIAL CELL,UR RARE /HPF (0-2); WBC,URINE 51-100 /HPF (0-1)
[2023-12-25] MEDS ORDERED: CEFU500T67 PO (22:18)
[2023-12-25] MEDS ORDERED: PHEN-776 PO (22:18)
[2023-12-25] MEDS ORDERED: cefTRIAXone 1G VIAL IM ONE (22:30)
[2023-12-25] MEDS: cefTRIAXone 1G VIAL IM ONE (23:03)
[2023-12-25 23:11] VITALS: BP 125/65; PULSE 90; RESP 18; TEMP 99; O2SAT 97
== END 2023-12-25 23:15 | disposition home or self-care (01) ==
LOC: EDH 21:02
DX: N30.01 Acute cystitis with hematuria (principal); R30.0 Dysuria; E11.9 Type 2 diabetes mellitus without complications; I10 Essential (primary) hypertension; E03.9 Hypothyroidism, unspecified; Z88.0 Allergy status to penicillin; Z79.899 Other long term (current) drug therapy; Z79.84 Long term (current) use of oral hypoglycemic drugs; Z90.710 Acquired absence of both cervix and uterus; Z90.49 Acquired absence of other specified parts of digestive tract
CPT/HCPCS: 99283; 87086; 81001; 96372; J0696

== ENCOUNTER → 2024-01-07 | Outpatient (CLI) | payer OTHER ==
[~2024-01-07] MED LIST changes: +CEFU500T67 PO; +PHEN-776 PO
--- NOTE | 2024-01-07 09:17 | HMCIMG ---
RIBS UNILAT 2V LT HISTORY: Pain COMPARISON: None TECHNIQUE: 4 images of left ribs were obtained. FINDINGS: There are left fifth, seventh and eighth rib fractures with irregularity of indeterminate age. Degenerative changes are seen. IMPRESSION: 1. Findings as described above.
== END | disposition home or self-care (01) ==
LOC: RAH 08:26
PROVIDERS: ATTEND Family Medicine
DX: S22.42XA Multiple fractures of ribs, left side, initial encounter for closed fracture (principal); M19.09 Primary osteoarthritis, other specified site; R07.81 Pleurodynia; X58.XXXA Exposure to other specified factors, initial encounter; Y93.89 Activity, other specified; Y92.89 Other specified places as the place of occurrence of the external cause; Y99.8 Other external cause status
CPT/HCPCS: 71100

== ENCOUNTER 2024-01-21 05:48 | Observation (INO) | payer OTHER ==
[2024-01-20 12:23] LABS: BASOPHILS # (AUTO) 0.03 K/uL (0.00-0.20); BASOPHILS % (AUTO) 0.3 % (0.0-5.0); EOSINOPHILS # (AUTO) 0.49 K/uL (0.00-0.70); EOSINOPHILS % (AUTO) 4.5 % (0.0-8.0); HEMATOCRIT 37.4 % (36-48); IMMATURE GRANULOCYTE ABSOLUTE 0.09 K/uL (0-1); LYMPHOCYTES # (AUTO) 1.9 K/uL (1.0-4.8); LYMPHOCYTES % (AUTO) 17.2 % (21.0-51.0); MEAN CORPUSCULAR HEMOGLOBIN 29.4 pg (27.0-33.0); MEAN CORPUSCULAR HGB CONC 31.8 g/dL (32.0-36.0); MEAN CORPUSCULAR VOLUME 92.3 fL (79-99); MONOCYTES # (AUTO) 0.8 K/uL (0.1-1.0); MONOCYTES % (AUTO) 7.1 % (3.0-13.0); NEUTROPHILS # (AUTO) 7.6 K/uL (1.8-7.7); NEUTROPHILS % (AUTO) 70.1 % (40.0-77.0); PLATELET COUNT (AUTO) 391 K/uL (130-400); RED BLOOD CELL COUNT(AUTO) 4.05 MIL/uL (4.00-5.50); RED CELL DISTRIBUTION WIDTH 14.4 % (11.0-15.5); WHITE BLOOD COUNT (AUTO) 10.8 K/uL (4.8-10.8)
[2024-01-20 12:36] LABS: INR 0.97 (0.85-1.15); PROTHROMBIN TIME 10.5 SEC (9.6-11.6)
[2024-01-20 12:38] LABS: PARTIAL THROMBOPLASTIN TIME 26.6 SEC (26.3-35.5)
[2024-01-20 12:39] LABS: APPEARANCE,URINE CLEAR (CLEAR); BILIRUBIN,URINE NEGATIVE (NEGATIVE); COLOR,URINE LIGHT-YELLOW (YELLOW); GLUCOSE, URINE (UA) 30 mg/dL (NEGATIVE); KETONES,URINE NEGATIVE (NEGATIVE); LEUKOCYTE ESTERASE ,URINE 500 Leu/uL (NEGATIVE); NITRATE,URINE NEGATIVE (NEGATIVE); OCCULT BLOOD,URINE NEGATIVE (NEGATIVE); PH,URINE 6.5 (5.0-8.0); PROTEIN,URINE NEGATIVE (NEGATIVE); UROBILINOGEN,URINE 0.2 mg/dL (0.2-1.0)
[2024-01-20 12:41] LABS: ALBUMIN 3.6 g/dL (3.5-5.0); CREATININE 0.9 mg/dL (0.5-1.0); POTASSIUM 3.6 mmol/L (3.5-5.1)
[2024-01-20 12:43] VITALS: BP 158/66; PULSE 80; RESP 16; TEMP 97.9
[2024-01-20 12:52] LABS: ADD UA MICROSCOPIC YES
[2024-01-20 13:17] LABS: BACTERIA,URINE FEW /HPF (None Seen); SQUAMOUS EPITHELIAL CELL,UR RARE /HPF (0-2); WBC,URINE TNTC /HPF (0-1)
--- NOTE | 2024-01-20 16:32 | NUR ---
RE: LABS REPORTED UA RESULTS (PATIENT W/ DYSURIA) AND CRP 17.20 (PENDING URINE CX RESULTS) TO DR CORTES. NO NEW ORDERS, OK TO PROCEED.
[~2024-01-21] VITALS: Ht 149.9 cm; Wt 71.3 kg
[2024-01-21] VITALS (31 sets, daily range): BP systolic 110–160; BP diastolic 48–87; PULSE 69–91; RESP 16–20; TEMP 97.1–98.3; O2SAT 96–97
[~2024-01-21 05:48] MED LIST changes: -ACET-3194 PO; -ALBU8.5H8 IH; -APIX2.5T PO; -CEFU500T67 PO; -DEXA6TAB PO; +GLIM1TAB56 PO; +LEVO25TA54 PO; +LOSA25TA41 PO; -METF-444 PO; +OMEP40CA21 PO; -PANT40TA55 PO; -PHEN-776 PO
--- NOTE | 2024-01-21 06:25 | NUR ---
ORTHO COORDINATOR: HOOSJR TOTAL SCORE: 17 TOTAL HIP PRE-OP ASSESSMENT COMPLETED.
[2024-01-21] MEDS: CLINDAMYCIN IVPB 900MG/50ML 50 ML IV ONE (06:35)
[2024-01-21] MEDS: 0.9%NACL 1000ML 1,000 ML IV ONE (06:35)
[2024-01-21] MEDS ORDERED: rocuRONium bROMide 10MG/1ML 5ML VL ONE (06:58)
[2024-01-21] MEDS ORDERED: proPOFol 10 MG/ML 20ML VIAL IV ONE (06:58)
[2024-01-21] MEDS ORDERED: MIDAZOLAM HCL 1 MG/ML 2ML VIAL ONE (06:58)
[2024-01-21] MEDS ORDERED: ondanSETRON 4MG INJ ONE (06:59)
[2024-01-21] MEDS ORDERED: FENTanyl CITRate PF 50 MCG/1 ML 2ML VIAL ONE ×2 (06:59→09:39)
[2024-01-21] MEDS ORDERED: TRANEXAMIC ACID 1000MG/10ML ONE (07:10)
[2024-01-21] MEDS ORDERED: dexaMETHasone SOD PHOSPHATE 10MG/ML 1ML VIAL ONE (07:15)
[2024-01-21] MEDS: ceFAZolin SODIUM 2 GM VIAL IVPB ONE (07:25)
[2024-01-21] MEDS: ketOROlac 15MG/ML VIAL (15MG/ML) IV SCH (07:30)
[2024-01-21] MEDS ORDERED: PoTASSium chl 10% ELIXIR 20MEQ 20 MEQ/15 ML UDCUP PO PRN (07:30)
[2024-01-21] MEDS ORDERED: CALCIUM CARB 500MG PO PRN (07:30)
[2024-01-21] MEDS ORDERED: PoTASSium chloRIDE 20MEQ ER 20 MEQ ERTAB PO PRN (07:30)
[2024-01-21] MEDS ORDERED: FERROUS FUMARATE 324 MG TABLET PO PRN (07:30)
[2024-01-21] MEDS ORDERED: PANTOPrazole 40 MG TAB DR PO PRN (07:30)
[2024-01-21] MEDS ORDERED: PoTASSium chloRIDE 20MEQ/100ML 100 ML IV PRN (07:30)
[2024-01-21] MEDS ORDERED: phenylEPHRINE HCL 10 MG/ML 1ML VIAL IV ONE (08:27)
[2024-01-21] MEDS: GLIMEPIRIDE 2 MG TABLET PO SCH (09:00)
[2024-01-21] MEDS: doCUSate SODIUM 100 MG CAP PO SCH (09:00)
[2024-01-21] MEDS: polyETHYLene GLYCol 3350 17 GM POWD.PACK PO SCH (09:00)
[2024-01-21] MEDS: SUGAMMADEX SODIUM 200 MG/2 ML VIAL IV ONE (09:00)
[2024-01-21] MEDS: GABApentin 100 MG CAPSULE PO SCH (09:00)
[2024-01-21] MEDS: LoSARTan 25 MG TABLET PO SCH (09:00)
[2024-01-21] MEDS: TRANEXAMIC ACID 1000MG/10ML IV ONE (09:07)
--- NOTE | 2024-01-21 09:27 | OP ---
Operative Note: DATE OF PROCEDURE: 01/21/24 SURGEON: ANTHONY CORTES MD STAFF ANTISUBMARINE OFFICER: Bee Alejo ANESTHESIA: General and fascia iliaca block ANESTHESIOLOGIST/SOFTWARE QUALITY AUTOMATION ENGINEER: Fabiano Herr PREOPERATIVE DIAGNOSIS: Right hip osteoarthritis POSTOPERATIVE DIAGNOSIS: Right hip osteoarthritis PROCEDURE: Right total hip arthroplasty ESTIMATED BLOOD LOSS: 200 cc INDICATIONS: 68-year-old female with a right hip osteoarthritis failing conservative management. After discussion of the risks, benefits, and alternatives, the patient voluntarily agreed to undergo the aforementioned procedure. IMPLANTS: Yuen and Nephew 48 mm R3 acetabular component with 6.5 screws x2 and central hole cover, 0 degree acetabular liner, Anthology size three standard offset stem with a 32+ 0 Oxinium head DESCRIPTION OF PROCEDURE: Patient was properly identified in the preoperative h olding area. Surgical site marking was verified and surgery consent reviewed. The patient was then taken to the operating room and placed in supine position on the OR table. After induction of general anesthesia, preoperative antibiotics were given. The patient was then transitioned in the lateral decubitus position with the right side up. All bony prominences were well-padded. Right lower extremity was then prepped and draped in the usual sterile fashion. Surgical time out was done verifying correct surgery, side, site, and location to be performed. We then began the procedure by making approximately 15 cm long incision cente red over the greater trochanter. Here we came sharply through skin down to the fascia. Hemostasis was then achieved using Bovie electrocautery. We then incised fascia in line with the skin incision and finger split the tensor muscle proximally. We then placed our Charnley retractor. At this point we identified the vastus ridge and began elevating the full-thickness soft tissue flap off of the vastus ridge, splitting the vastus lateralis and gluteus muscles as necessary. We then proceeded to externally rotate the femur while making this flap. We resected part of the anterior capsule. The femoral head and neck was then delivered into view. We then dislocated the hip and performed a femoral neck osteotomy approximately half fingerbreadth proximal lesser trochanter. We then placed our retractors around the superior and anterior portion of the acetabulum and began to remove the labrum circumferentially. We then began reaming the acetabulum where we reamed up to a size 47 ensuring appropriate anteversion and abduction. We then proceeded to trial with the size 48 acetabular component and this appeared to sit well. We opened our size 48 acetabular component and after irrigating out the wound malleted this into place. It appeared to have good press-fit however we elected to place 6.5 screws x2. We drilled and filled the screws in standard fashion in the posterior superior portion of the cup. We then placed the manhole cover on the center of the cup. The wound was thoroughly irrigated out further and we placed the acetabular liner and impacted this in place in standard fashion. We then proceeded to reposition our retractors to elevate the proximal femur out of the wound. We then used the box chisel and canal finder to began preparing the femoral side and sequentially broached up to the aforementioned size stem. Once we felt we had good fit, fill, and control of the femur with the stem in place we then used our trial head component and reduce the hip. Upon reduction, we had appropriate soft tissue tensioning, limb length and stable range of motion. We therefore dislocated the hip once more removed our trial components thoroughly irrigated the out the wound and placed our final components in standard fashion. The hip was then reduced with the final components in place. It was found to be stable through range of motion with appropriate soft tissue tensioning and appropriate limb length. At this point we placed a bump under the knee and the foot on the gonzalez with a stack of towels to allow for internal rotation. We repaired the abductors back to the greater trochanter using #5 Ethibond. We then repaired the rent in the vastus lateralis and gluteus muscles using #1 Vicryl in a running fashion. We removed our Charnley retractor and began to repair the IT band using #1 Vicryl in interrupted [id number] fashion. At this point we began to close her subcutaneous tissue using 2-0 Vicryl. Running 3-0 Monocryl in subcuticular fashion with Dermabond placed over this for the skin. Island barrier dressing was then applied. Patient was returned to supine position with abduction pillow placed, awakened from anesthesia, and taken to the recovery room in stable condition. ANTHNOY CORTES MD Jan 21, 2024 09:27
[2024-01-21] MEDS ORDERED: GLYCOPYRROLATE 0.2 MG/ML 5 ML VIAL ONE (09:39)
[2024-01-21] MEDS ORDERED: NEOSTIGMINE METHYLSULFATE 1MG/ML IV ONE (09:39)
[2024-01-21] MEDS ORDERED: metoCLOPRAmide 10 MG/2 ML VIAL ONE (09:50)
[2024-01-21] MEDS: FENTanyl CITRate PF 50 MCG/1 ML 2ML VIAL ONE (10:15)
[2024-01-21] MEDS: MEPERIDINE-PF 25 MG/ML SYG ONE ×2 (10:27→10:45)
--- NOTE | 2024-01-21 10:56 | HMCIMG ---
HIP UNILAT 4VW RIGHT REASON: ORIF RIGHT THS, SX. COMPARISON: None TECHNIQUE: Fluoroscopic images of right hip were obtained. FINDINGS: Please see procedure report by referring physician. IMPRESSION: Intraoperative films.
--- NOTE | 2024-01-21 10:58 | HMCIMG ---
HIP BILAT 2VW HISTORY: Surgery COMPARISON: None TECHNIQUE: 6 images of bilateral hips were obtained. FINDINGS: Total right hip arthroplasty changes are seen with soft tissue emphysema. Alignment appears be grossly adequate. There is no acute displaced fracture or dislocation. Degenerative changes are seen. IMPRESSION: 1. Findings as described above.
[2024-01-21] MEDS: INSULIN humuLIN R 100 UNIT/ML 3ML SQ SCH (11:30)
--- NOTE | 2024-01-21 11:44 | NUR ---
PT TRANSFERRED FROM PACU TO ROOM 14 DAY PATIENT DUE TO NO BEDS AVAILABLE IN MED/SURG. PT AWAKE\, ALERT AND ORIENTED X 3. PT'S NOW AT BEDSIDE.
[2024-01-21] MEDS: ceFAZolin SODIUM 2 GM VIAL IVP SCH (11:53)
[2024-01-21] MEDS: 0.9%NACL 1000ML 1,000 ML IV SCH (12:09)
--- NOTE | 2024-01-21 14:00 | NUR ---
ORTHO COORDINATOR: TEACHING REGARDING DVT AND PNEUMONIA PREVENTION, PAIN EXPECTATIONS AND PAIN MANAGEMENT. PATIENT IN BED. AT BEDSIDE. PATIENT DROWSY. NO INCENTIVE SPIROMETER, WILL NOTIFY RESPIRATORY THERAPY. B SCD SLEEVES APPLIED, NO SCD MACHINE. PATIENT RETURN DEMONSTRATED PROPER FOOT FLEXION AND EXTENSION. PAIN SCALE REVIEWED. ENCOURAGED PATIENT TO RATE PAIN NUMERICALLY WE HAVE DIFFERENT MEDICATIONS TO ADDRESS NUMBER SCALE. PATIENT VERBALIZED UNDERSTANDING. NO ADDITIONAL QUESTIONS/CONCERNS AT THIS TIME. SCD MACHINE LOCATED. B SCD'S APPLIED AND FUNCTIONING. 1436 PHONED RESPIRATORY THERAPY REQUESTING INCENTIVE SPIROMETER. THERAPIST ACKNOWLEDGED COMMUNICATION.
--- NOTE | 2024-01-21 14:51 | NUR ---
CALLED TO GIVE REPORT TO CYRUS HONG, PER GUILLERMO, NURSE IS OUT ON LUNCH, CHARGE NURSE BUSY GIVING BLOOD, WILL CALL AGAIN.
--- NOTE | 2024-01-21 15:02 | NUR ---
REPORT GIVEN TO CYRUS HONG
--- NOTE | 2024-01-21 15:24 | NUR ---
PATIENT ARRIVED FROM PACU ARRIVED FROM RECOVERY, ORIENTED X4, DROWSY, BUT ANSWERS APPROPRIATELY. FAMILY AT BEDSIDE
--- NOTE | 2024-01-21 17:15 | NUR ---
PT eval completed with multiple family present. Pt reports 10/10 pain prior to start. Nurse medicated , PT waited 20 minutes. Pt agrees to sit EOB at least. Vitals stable in supine and seated. Pt sits EOB and does not sit to R side. Pt trying to offload R hip due to pain, leg is adducted, externally rotated. PT corrects position. Pt sits to stands 3 times, BP stable. Pt very anxious and not following instructions. Pt requests BSC. Transfers x 2 assist to commode and urinates. Pt Needs max to total x2 nack to bed with near fall. PT staff assist patient to bed and to supine with slider. SCDs placed ice in place, bed alarm on. Education provided to family and patient, also written on board.
--- NOTE | 2024-01-21 17:18 | NUR ---
Pt will benefit from purewick. Nursing should not transfer patient due to her safety and pain. This is written on the board in the room and communicated to nursing.
[2024-01-21] MEDS: HYDROcodone/APAP 5/325 1 TAB TABLET PO PRN (20:35)
[2024-01-22] VITALS (7 sets, daily range): BP systolic 94–129; BP diastolic 46–68; PULSE 72–86; RESP 16–20; TEMP 98–98.2; O2SAT 96–98
[2024-01-22 05:24] LABS: CREATININE 0.9 mg/dL (0.5-1.0); POTASSIUM 3.6 mmol/L (3.5-5.1)
[2024-01-22] MEDS: levoTHYROxine 25 MCG TABLET PO SCH (06:16)
[2024-01-22 06:29] LABS: HEMATOCRIT 24.3 % (36-48); MEAN CORPUSCULAR HEMOGLOBIN 29.9 pg (27.0-33.0); MEAN CORPUSCULAR HGB CONC 32.1 g/dL (32.0-36.0); MEAN CORPUSCULAR VOLUME 93.1 fL (79-99); RED BLOOD CELL COUNT(AUTO) 2.61 MIL/uL (4.00-5.50); RED CELL DISTRIBUTION WIDTH 14.7 % (11.0-15.5); WHITE BLOOD COUNT (AUTO) 10.5 K/uL (4.8-10.8)
--- NOTE | 2024-01-22 08:10 | PN ---
Ortho postop day one. This morning the patient is still in bed but she is awake alert and oriented. She is in no acute distress. Reporting moderate pain. Denies any dizziness although she states that she has on a regular basis intermittent episodes of dizziness even prior to surgery. Vital signs slightly hypotensive overnight but this morning stable. Afebrile. Laboratory results reviewed. She did have a drop in hemoglobin and hematocrit we will continue to observe and address per protocol as necessary. Voiding on her own. Operative findings discussed with the patient. The dressing is intact. Distal neurovascular exam intact. Gastrocnemius soft nontender. Negative Homans. Discussed with the patient that I would like for her to spend time out of bed instead in bed as this will increase the risk of DVT. Discussed incentive spirometry which she states she is doing on a regular basis. Physical therapy was able to dangle at the bedside and stand only but because she had severe pain she was not ambulated. She is pending further physical therapy this morning. Anticipated discharge goal is long-term facility. Assessment: Status post right total hip arthroplasty. Acute postoperative blood loss anemia. Plan: Continue with Dr. Hoffman's total hip arthroplasty protocol and discharge planning. Acute postoperative blood loss anemia addressed with the protocol as necessary. Vitals/Labs Vital Signs Date Time Temp Pulse Resp B/P (MAP) Pulse Ox O2 Delivery O2 Flow Rate FiO2 01/22/24 07:53 98.1 86 18 129/60 96 Room Air 21 01/21/24 20:00 0 Laboratory Tests 01/22/24 03:19 01/22/24 05:55 Medications Current Medications Clindamycin HCl/ Dextrose 50 ml @ As Directed STK-MED ONCE IV; Start 01/21/24 at 06:25; Stop 01/21/24 at 06:26; Status DC Sodium Chloride 1,000 ml @ As Directed STK-MED ONCE IV Last administered on 01/21/24at 06:35; Start 01/21/24 at 06:25; Stop 01/21/24 at 06:26; Status DC Propofol 200 mg STK-MED ONCE IV; Start 01/21/24 at 06:58; Stop 01/21/24 at 06:58; Status DC Midazolam HCl 2 mg STK-MED ONCE .ROUTE; Start 01/21/24 at 06:58; Stop 01/21/24 at 06:58; Status DC Rocuronium Mcdonald 50 mg STK-MED ONCE .ROUTE; Start 01/21/24 at 06:58; Stop 01/21/24 at 06:59; Status DC Fentanyl Citrate 100 mcg STK-MED ONCE .ROUTE; Start 01/21/24 at 06:59; Stop 01/21/24 at 06:59; Status DC Ondansetron HCl 4 mg STK-MED ONCE .ROUTE; Start 01/21/24 at 06:59; Stop 01/21/24 at 06:59; Status DC Tranexamic Acid 1,000 mg STK-MED ONCE .ROUTE; Start 01/21/24 at 07:10; Stop 01/21/24 at 07:11; Status DC Dexamethasone Sodium Phosphate 10 mg STK-MED ONCE .ROUTE; Start 01/21/24 at 07:15; Stop 01/21/24 at 07:16; Status DC Sodium Chloride 1,000 ml @ 100 mls/hr Q10H IV Last administered on 01/21/24at 12:09; Start 01/21/24 at 07:30; Stop 01/22/24 at 07:29; Status DC Polyethylene Glycol 17 gm DAILY PO; Start 01/21/24 at 09:00; Stop 02/20/24 at 08:59 Bisacodyl 10 mg DAILY PRN RC; Start 01/24/24 at 07:30; Stop 02/23/24 at 07:29 Ketorolac Tromethamine 15 mg Q6H PRN IV; Start 01/22/24 at 07:30; Stop 01/26/24 at 07:29 Ferrous Fumarate 324 mg DAILY PRN PO; Start 01/21/24 at 07:30; Stop 02/20/24 at 07:29 Calcium Carbonate 500 mg Q12H PRN PO; Start 01/21/24 at 07:30; Stop 02/20/24 at 07:29 Insulin Human Regular INSULIN SLIDING SCAL... ACHS SQ Last administered on 01/21/24at 16:33; Start 01/21/24 at 07:30; Stop 02/20/24 at 07:29 Ondansetron HCl 4 mg Q6H PRN IVP; Start 01/21/24 at 07:30; Stop 02/20/24 at 07:29 Cefazolin Sodium 2 gm Q8H IVP Last administered on 01/21/24at 20:23; Start 01/21/24 at 12:30; Stop 01/21/24 at 20:31; Status DC Gabapentin 100 mg TID PO Last administered on 01/21/24at 20:22; Start 01/21/24 at 09:00; Stop 02/20/24 at 08:59 Cyclobenzaprine HCl 5 mg Q8H PRN PO; Start 01/21/24 at 07:30; Stop 02/20/24 at 07:29 Docusate Sodium 100 mg BID PO Last administered on 01/21/24at 20:22; Start 01/21/24 at 09:00; Stop 02/20/24 at 08:59 Ketorolac Tromethamine 15 mg Q8H IV Last administered on 01/21/24at 23:52; Start 01/21/24 at 07:30; Stop 01/21/24 at 23:31; Status DC Potassium Chloride 100 ml @ 100 mls/hr AD PRN IV; Start 01/21/24 at 07:30; Stop 02/20/24 at 07:29 Potassium Chloride 20 meq AD PRN PO; Start 01/21/24 at 07:30; Stop 02/20/24 at 07:29 Potassium Chloride 20 meq AD PRN PO; Start 01/21/24 at 07:30; Stop 02/20/24 at 07:29 Tramadol HCl 50 mg Q6H PRN PO; Start 01/21/24 at 07:30; Stop 01/26/24 at 07:29 Acetaminophen/ Hydrocodone Bitart Q4H PRN PO Last administered on 01/22/24at 06:16; Start 01/21/24 at 07:30; Stop 01/26/24 at 07:29 Levothyroxine Sodium 25 mcg SYN PO Last administered on 01/22/24at 06:16; Start 01/22/24 at 06:30; Stop 02/21/24 at 06:29 Losartan Potassium 25 mg DAILY PO; Start 01/21/24 at 09:00; Stop 02/20/24 at 08:59 Glimepiride 1 mg DAILY PO; Start 01/21/24 at 09:00; Stop 02/20/24 at 08:59 Pantoprazole Sodium 40 mg DAILY PRN PO; Start 01/21/24 at 07:30; Stop 02/20/24 at 07:29 Cefazolin Sodium 2 gm STK-MED ONCE IVPB Last administered on 01/21/24at 07:25; Start 01/21/24 at 07:25; Stop 01/21/24 at 08:19; Status DC Tranexamic Acid 1,000 mg STK-MED ONCE IV Last administered on 01/21/24at 07:35; Start 01/21/24 at 07:35; Stop 01/21/24 at 08:19; Status DC Phenylephrine HCl 10 mg STK-MED ONCE IV; Start 01/21/24 at 08:27; Stop 01/21/24 at 08:27; Status DC Tranexamic Acid 1,000 mg STK-MED ONCE IV Last administered on 01/21/24at 09:07; Start 01/21/24 at 09:07; Stop 01/21/24 at 09:14; Status DC Glycopyrrolate 1 mg STK-MED ONCE .ROUTE; Start 01/21/24 at 09:39; Stop 01/21/24 at 09:39; Status DC Neostigmine Methylsulfate 10 mg STK-MED ONCE IV; Start 01/21/24 at 09:39; Stop 01/21/24 at 09:39; Status DC Fentanyl Citrate 100 mcg STK-MED ONCE .ROUTE; Start 01/21/24 at 09:39; Stop 01/21/24 at 09:39; Status DC Metoclopramide HCl 10 mg STK-MED ONCE .ROUTE; Start 01/21/24 at 09:50; Stop 01/21/24 at 09:50; Status DC Fentanyl Citrate 100 mcg STK-MED ONCE .ROUTE Last administered on 01/21/24at 10:15; Start 01/21/24 at 10:13; Stop 01/21/24 at 10:13; Status DC Meperidine HCl 25 mg STK-MED ONCE .ROUTE Last administered on 01/21/24at 10:27; Start 01/21/24 at 10:25; Stop 01/21/24 at 10:25; Status DC Meperidine HCl 25 mg STK-MED ONCE .ROUTE Last administered on 01/21/24at 10:45; Start 01/21/24 at 10:40; Stop 01/21/24 at 10:40; Status DC HAWK FRIEND NP Jan 22, 2024 08:10
[2024-01-22] MEDS: traMADol HCL 50 MG TABLET PO PRN (08:29)
[2024-01-22] MEDS: ondanSETRON 4MG INJ IVP PRN (11:10)
[2024-01-22] MEDS: ketOROlac 15MG/ML VIAL (15MG/ML) IV PRN (11:11)
--- NOTE | 2024-01-22 12:56 | NUR ---
DCP CM MET WITH PT AND IN ROOM THIS MORNING, INITIAL ASSESSMENT DONE. PATIENT IS INDEPENDENT PRIOR TO SURGERY, LIVES AT HOME WITH . PT HAS A GLUCOMETER TO CHECK HER SUGAR, TAKES PO MED FOR DM. PT GOES TO [facility] ON [facility] FOR MEDS. DENIES ANY OTHER EQUIPMENT/SERVICES. PT FEELS SAFE TO GO BACK HOME, STILL DRIVE, ABLE TO ASSIST WITH TRANSPORTATION AND NEEDS NECESSARY. DISCUSSED MD RECOMMENDATION FOR SHORT TERM REHABILITATION, PT MADE AWARE INSURANCE MIGHT NOT APPROVE IRU LEVEL BUT PT QUALIFY FOR SNF LEVEL, GIVEN IN NETWORK FACILITIES, PT AGREEABLE, CONSENT SIGNED [facility], WITNESSED BY . DCP TO [facility] [place] ONCE APPROVED. JUAN SENT ORDER, CLINICALS, PT, PASRR TO [facility] AND [facility] VIA SECURE EMAIL. CM SPOKE TO [facility], MADE AWARE OF NEW REFERRAL, REP INFORMED DCP TODAY/ONCE APPROVED, PT WILL NEED FACILITY VAN FOR TRANSFER. REP WILL COME EVALUATE PT. PT PENDING APPROVAL AND ACCEPTANCE. PRIMARY NURSE CYRUS MADE AWARE. DR CORTES UPDATED. CM TO CONTINUE TO FOLLOW UP. Addendum: 01/22/24 at 1303 by DELL ORTIZ LVN Amended: Links added.
--- NOTE | 2024-01-22 16:20 | NUR ---
ORTHO COORDINATOR: REINFORCED TEACHING. PATIENT IN BED. AT BEDSIDE. PATIENT REPORTS UTILIZING INCENTIVE SPIROMETER ORDERED. PERFORMED FOOT FLEXION AND EXTENSION. REVIEWED PAIN MEDICATION AND PAIN SCALE. PATIENT REPORTS PAIN 09/09. 1630 REPORT TO PRIMARY NURSE. REVIEWED MEDICATION ADMINISTERED. WILL ADD MUSCLE RELAXER.
[2024-01-22] MEDS: CYCLOBENZAPRINE HCL 10 MG TABLET PO PRN (16:30)
[2024-01-23] VITALS: BP 132/55; PULSE 87; RESP 20; TEMP 98.9
[2024-01-23 04:00] VITALS: BP 104/55; PULSE 105; RESP 20; TEMP 98.8
[2024-01-23 08:11] VITALS: BP 103/61; PULSE 92; RESP 18; TEMP 97.4
[2024-01-23 08:28] VITALS: O2SAT 98
--- NOTE | 2024-01-23 08:40 | NUR ---
CM Note: [facility] approval CM spoke to Nannette w/[employer], pt has approval, rep aware pt will need facility van for transfer. Dr Hoffman updated. Primary nurse made aware via nursing communication. CM to continue to follow up. Addendum: 01/23/24 at 0841 by DELL ORTIZ LVN CM Amended: Links added.
--- NOTE | 2024-01-23 10:50 | NUR ---
ORTHO COORDINATOR: PATIENT SLEEPING, LEFT UNDISTURBED. AT BEDSIDE.
[2024-01-23 11:23] VITALS: BP 98/52; PULSE 82; RESP 16; TEMP 97.5
[2024-01-23] MEDS ORDERED: CYCL-309 PO (13:38)
[2024-01-23] MEDS ORDERED: GABA100C PO (13:38)
[2024-01-23] MEDS ORDERED: DOCU-116 PO (13:38)
[2024-01-23] MEDS ORDERED: HYDR-4060 PO (13:38)
[2024-01-23] MEDS ORDERED: ASPI-1443 PO (13:38)
--- NOTE | 2024-01-23 14:01 | DS ---
Discharge Summary Hospital Course Summary: The patient was admitted to the hospital postoperatively on 01/21/2024 after undergoing right total hip arthroplasty. They did well with routine postoperative pain control. They worked well with physical therapy. Developed some acute blood loss anemia but remained asymptomatic. They were subsequently able to be discharged on postoperative day 2 once discharge arrangements were made with [facility]. 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 States pain present but controlled with medications. Vital signs stable, afebrile No acute distress, alert and oriented x3 Reclining nearly flat in bed at the time of my arrival Nonlabored breathing Right lower extremity - dressing over the right hip is clean dry and intact with a mild amount of edema present. No erythema or warmth noted. No palpable fluctuance. Grossly neurovascularly intact distally. Discharge planning is to [facility] and the patient has been accepted Patient was able to ambulate with physical therapy yesterday 10/50 ft in the am/pm ASSESSMENT: Postop day two status post right total hip arthroplasty PLAN: See discharge instructions Discharge Instructions: Begin working with physical therapy at the facility. Remembered do not flex the hip more than 90 and do not cross midline at the knees or ankles for the 1st six weeks. If you are side sleeper place a pillow between the knees and ankles to prevent the legs from crossing. Dressing may be removed 01/24/2024 and left open to air. Showers ok allowing soap and water to run over the wound. Pat dry. Do not submerge wound in tub/ pool. Do not apply ointments. Do not apply Betadine. Do not apply peroxide. Ice packs to decrease pain/swelling. Prescriptions have been sent to the pharmacy: *[place] 5/325mg 1-2 tab every 6 hours as needed for severe pain. (please call for refills) Cyclobenzaprine 5mg 1 tab every 8 hours as needed for muscle spasm pain. Gabapentin 100mg 1 tab every 8 hours (may discontinue if drowsy). Colace 100mg 1 tab orally twice a day as needed for constipation. Aspirin 81 mg twice a day for 30 days to prevent blood clots. Call for a follow-up appointment in 2-3 weeks at [facility]. Home Medications: Active Scripts Hydrocodone/Acetaminophen (Hydrocodon-Acetaminophen 5-325) 5 Mg-325 Mg Tablet, 1-2 TAB PO Q6HPRN PRN for MODERATE/SEVERE PAIN LEVEL, #56 TAB 0 Refills Prov:ANTHONY CORTES MD 01/23/24 Reported Medications Omeprazole (Omeprazole) 40 Mg Capsule.dr, 40 MG PO DAILY PRN for HEARTBURN, CAP 01/20/24 Glimepiride (Glimepiride) 1 Mg Tablet, 1 MG PO DAILY, TAB 01/20/24 Levothyroxine Sodium (Levothyroxine Sodium) 25 Mcg Tablet, 25 MCG PO ACBKFST, TAB 01/20/24 Losartan Potassium (Losartan Potassium) 25 Mg Tablet, 25 MG PO DAILY, TAB 01/20/24 Discontinued Reported Medications Acetaminophen (Acetaminophen) 650 Mg Tablet.er, 650 MG PO Q4HPRN PRN for PAIN LEVEL 1 TO 5, TAB 04/08/18 Discontinued Scripts Phenazopyridine HCl (Pyridium) 200 Mg Tablet, 200 MG PO TID for painful urination for 5 Days, #15 TAB 0 Refills Prov:PARISA ELIAS NP 12/25/23 Cefuroxime Axetil (Cefuroxime) 500 Mg Tablet, 1 TAB PO BID for 7 Days, #14 TAB 0 Refills Prov:PARISA ELIAS NP 12/25/23 Metformin HCl (Metformin HCl) 500 Mg Tablet, 500 MG PO BIDMEALS for 30 Days, #60 TAB 0 Refills Prov:MARIA R PUCKETT MD 03/12/20 Albuterol Sulfate (Proair Hfa) 8.5 Gm Hfa.aer.ad, 8.5 GM IH Q6HPRN PRN for WHEEZING OR SOB for 30 Days, #1 INHALER 0 Refills Prov:MARIA R PUCKETT MD 03/12/20 Pantoprazole Sodium (Protonix) 40 Mg Ectab, 40 MG PO DAILY for 30 Days, #30 TAB.EC Prov:MARIA R PUCKETT MD 03/12/20 Apixaban (Eliquis) 2.5 Mg Tablet, 2.5 MG PO BID for 14 Days, #28 TAB 0 Refills Prov:MARIA R PUCKETT MD 03/12/20 Dexamethasone (Dexamethasone) 6 Mg Tablet, 6 MG PO DAILY for 2 Days, #2 TAB 0 Refills Prov:MARIA R PUCKETT MD 03/12/20 ANTHONY CORTES MD Jan 23, 2024 14:01
[2024-01-24] MEDS ORDERED: BisaCODYL 10 MG SUPP.RECT RC PRN (07:30)
== END 2024-01-23 17:20 | disposition short-term general hospital (02) ==
LOC: DAH 05:48 → DAHIP 05:49 → 4BH 15:24
PROVIDERS: ADMIT Student in an Organized Health Care Education/Training Program; ATTEND Student in an Organized Health Care Education/Training Program
DX: M16.11 Unilateral primary osteoarthritis, right hip (principal); R60.9 Edema, unspecified; D62 Acute posthemorrhagic anemia; G89.18 Other acute postprocedural pain; Z79.899 Other long term (current) drug therapy
CPT/HCPCS: 82040; 80048 ×2; 85025; 85610; 85730; 87086 ×2; 84134; 86140; 81001; 36415 ×2; 87641; 64447; 27130; 96374; 96376 ×3; 96375 ×2; 87186; 82948 ×12; 73503; 73521; 97161; 97116 ×4; 97530 ×7; 85027; G0378 ×50; A4663; C1776; A4600; J3010 ×3; J3490 ×6; J1100; J7030; J2250; J2704; J2710; J2175 ×2; J2765; J1885 ×5; J2371; J1815 ×2; J0690 ×3; A4649 ×2; A4930; A6255; A4215; A4223; A4222; A4221; J2405

== ENCOUNTER → 2024-11-29 | Outpatient (CLI) | payer OTHER ==
[~2024-11-29] MED LIST changes: +ASPI-1026 PO; +CYCL-309 PO; +DOCU-116 PO; +GABA100C PO; +HYDR-4060 PO
--- NOTE | 2024-11-30 06:30 | HMCIMG ---
EXAMINATION: SOFT TISSUE ULTRASOUND OF THE RIGHT HIP REGION. CLINICAL HISTORY: Suspected joint effusion. History of hip surgery in March. COMPARISON: None. TECHNIQUE: Transverse and longitudinal images were obtained in the right hip region. FINDINGS: There is a small fluid collection around the right hip joint that measures 5.1 x 1.0 x 5.0 cm in craniocaudal, AP, and transverse dimensions respectively. IMPRESSION: Small fluid collection around the right hip joint. Contrast enhanced MR may be considered. /[place]
== END | disposition home or self-care (01) ==
LOC: RAH 13:21
PROVIDERS: ATTEND Student in an Organized Health Care Education/Training Program
DX: M25.451 Effusion, right hip (principal)
CPT/HCPCS: 76882

== ENCOUNTER → 2024-12-13 | Outpatient (CLI) | payer OTHER ==
[2024-12-13 13:18] LABS: INR 0.95 (0.85-1.15)
--- NOTE | 2024-12-13 14:43 | NUR ---
RE: RT HIP ASPIRATION U/S IMAGES OF RT HIP TAKEN AND REVIEWED BY DR Nathaniel RUSH. NO FLUID SEEN AND PROCEDURE CANCELLED. DR Nathaniel RUSH EXPLAINED PATIENT AND . VERBALIZED UNDERSTANDING AND DISCHARGED HOME.
--- NOTE | 2024-12-14 07:42 | HMCIMG ---
EXAMINATION: SOFT TISSUE ULTRASOUND OF THE RIGHT HIP. CLINICAL HISTORY: Right hip abscess. COMPARISON: Ultrasound of the right hip dated 11/29/2024. TECHNIQUE: Transverse and longitudinal images were obtained in the right hip region. FINDINGS: There are no focal lesions. There is no abscess. IMPRESSION: No abscess identified. Interval resolution of the collection. /[place]
== END | disposition home or self-care (01) ==
LOC: RAH 12:36
PROVIDERS: ATTEND Student in an Organized Health Care Education/Training Program
DX: T81.49XA Infection following a procedure, other surgical site, initial encounter (principal); L02.415 Cutaneous abscess of right lower limb; Z51.81 Encounter for therapeutic drug level monitoring; Z96.641 Presence of right artificial hip joint; X58.XXXA Exposure to other specified factors, initial encounter; Y93.89 Activity, other specified; Y92.89 Other specified places as the place of occurrence of the external cause; Y99.8 Other external cause status
CPT/HCPCS: 36415; 76882; 85610; 85730